=== PATIENT | female | born 1985 | race Caucasian/White ===

== ENCOUNTER → 2021-10-12 11:27 | Outpatient (REF) | payer OTHER, SELFPAY | LOC: ANHLAB 11:27 | PROVIDERS: PCP Hospitalist; Visit Provider Nurse Practitioner | DX: D49.2 Neoplasm of unspecified behavior of bone, soft tissue, and skin (principal) | CPT/HCPCS: 88305; 88342 ==

== ENCOUNTER 2021-12-25 13:00 | Outpatient (NON) | payer OTHER, SELFPAY | END 2021-12-25 13:01 | disposition home or self-care (01) | LOC: ANHLAB 12-26 14:24 | PROVIDERS: PCP Hospitalist; Visit Provider Nurse Practitioner | DX: D22.71 Melanocytic nevi of right lower limb, including hip (principal) | CPT/HCPCS: 88305 ==

== ENCOUNTER 2022-03-23 15:27 | Emergency (ER) | payer OTHER, SELFPAY ==
[2022-03-23 15:40] VITALS: BP 131/82; PULSE 84; RESP 18; TEMP 37.1; O2SAT 100
--- NOTE | 2022-03-23 15:44 | ED.URI ---
HPI - URI/Sore Throat General Chief Complaint: Upper Respiratory Infection Stated Complaint: sinus infection Time Seen by Provider: 03/23/22 15:42 Source: patient Mode of arrival: ambulatory Limitations: no limitations History of Present Illness HPI Narrative: Malka is a 36-year-old female patient presenting to the clinic today with complaints of possible sinus infection. She reports she has had some sinus drainage, cough, dental pain, and nasal congestion. She reports that she has had this ongoing for approximately 2-3 weeks. She denies any fever or chills MD elicited complaint: cough, rhinorrhea, nasal congestion and sinus pain Related Data Home Medications Medication Instructions Recorded Confirmed multivit with 1 tablet PO DAILY 03/23/22 03/23/22 uixhzmti-qrtv-HK-lutein 8 mg iron-400 mcg-300 mcg tablet (Centrum Silver Women) Allergies Allergy/AdvReac Type Severity Reaction Status Date / Time codeine Allergy Unknown Nausea and Verified 03/23/22 15:44 Vomiting Review of Systems Review of Systems: Pertinent positives per HPI. Patient denies any fever, chills, rash, headache, visual changes, dizziness, shortness of breath, chest pain, palpitations, nausea, vomiting, diarrhea, constipation, abdominal pain, or any urinary issues. PMFSH Surgical History Surgical History H/O breast augmentation 2009 Hx of LASIK 2009 Hx of tonsillectomy 1993 Family History Family History Mother Breast cancer Father Lymphoma Social History Social History Smoking status: Unknown if ever smoked Comments At the time of my signature, I reviewed and agree with the nursing past medical, surgical, social, and family history. There is no relevant family history pertinent to the patient complaint. Exam Narrative: General: Well-developed, well nourished, in no apparent distress Head: Normocephalic, atraumatic Eyes: Pupils equally round and reactive to light bilaterally, EOM intact, sclera and conjunctive clear, no discharge, lids normal Ears: TMs intact and clear, ear canals clear, no drainage, grossly hearing normal. Nose: Nares patent, yellow nasal discharge, no inflammation, maxillary sinus tenderness. Mouth: Oral pharynx without lesions or masses, good dentition, MMM. postnasal Neck: Supple, trachea midline, no enlargement of anterior or posterior cervical nodes, no thyroid masses or goiter palpable. Cardio: Regular rate and rhythm, s1 and s2 normal, no murmur appreciated. Resp: Clear to auscultation bilaterally, no rhonchi, rales, wheezing or rubs Course Course Emergency Course: Portions of this record may have been created with voice recognition software. Level of Care: Express Care Visit Vital Signs Vital signs: Vital signs reviewed MDM - URI/Sore Throat MDM Narrative Medical decision making narrative: At the time of visit patient is resting comfortably on the exam table. I suspect patient has acute bacterial rhinosinusitis. Prescription for Augmentin and prednisone was sent to the pharmacy. Supportive measures were discussed with the patient she voiced understanding of discharge instructions and agrees to treatment plan. Differential Diagnosis Differential diagnosis: Likely upper respiratory infection, otitis media, sinusitis, viral infection, bronchitis, influenza, pharyngitis and other ( COVID) Discharge Plan Discharge Clinical Impression: Acute bacterial rhinosinusitis Patient Disposition: Home, Self-Care Condition: Stable Instructions: Antibiotic Form, Rhinosinusitis (ED) Additional Instructions: Take prescription medications only as prescribed- prednisone and Augmentin Increase fluids and stay well hydrated Tylenol/motrin for pain/fever Flonase and OTC antihistamines as direc
== END 2022-03-23 15:50 | disposition home or self-care (01) ==
PROVIDERS: Emergency Provider Nurse Practitioner Family; PCP Hospitalist
DX: J01.90 Acute sinusitis, unspecified (principal)
CPT/HCPCS: 99213; G0463

== ENCOUNTER 2024-07-19 15:47 | Emergency (ER) | payer OTHER, SELFPAY ==
--- OUTSIDE RECORDS SUMMARY | 2024-07-19 15:50 | XMS_ITS | Referral Summary ---
Author Organization [facility] Address [address] [place] [address] Care Team Providers Care Registration Representative Name Role Phone Artem Hoff MD Primary Care Provider [phone] Allergies Active Allergy Reactions Criticality Noted Date Comments Codeine Palpitations,Nausea only,Vomiting Reaction: Altered Heart Rate, , Reaction: Nausea, Vomiting, Medications triamcinolone (KENALOG) 0.1 % creamIndication s:Tinea versicolor Apply to affected area 1-2 times daily as needed. Avoid face and groin. 453.6 g 2 3 Active Estarylla 0.25-35 mg-mcg per tablet Take 1 tablet by mouth daily 4 Active ketoconazole (NIZORAL) 2 % shampooIndicati ons:Tinea versicolor Apply topically 2 (two) times a week Apply to damp skin, lather, leave on 5 minutes, and rinse 120 mL 1 4 Active Active Problems Problem Noted Date Diagnosed Date Tinea versicolor 01/15/2023 Assessment & Plan (10/22/2023 2:26 PM CDT): Ketoconazole shampoo to area and let dry then shower Repeat for 3-5 days Fluconazole 300 mg weekly for 6 weeks Assessment & Plan (01/15/2023 4:20 PM CDT): Triamcinolone cream as needed Also discussed using Selsun blue Immunizations Immunization Administration Dates Next Due Influenza, Quadrivalent, Spl it, Preservative Free, Intramuscular 12/15/2021 Influenza, Split 12/13/2010 Influenza, Trivalent, IM (MDV) 11/26/2008 Influenza, Unspecified 01/15/2023(Deferr ed: Patient Refused),12/09/2020(Deferred: Patient Refused),03/18/2020(Deferred: Patient Refused) Moderna SARS-CoV-2 Monovalen t Vaccination (12+ YRS) 06/04/2020,05/07/2020 PPD TEST 10/14/2020 Rho (D) Immune Globulin, IV or IM 06/17/2018, Social History Tobacco Use Types Packs/Day Years Used Date Smoking Tobacco: Never Smokeless Tobacco: Never Tobacco Cessation:Counseling Given: Not Answered Alcohol Use Standard Drinks/Week Comments Yes 0 (1 standard drink = 0.6 oz pur e alcohol) AUDIT-C Answer Date Recorded Q1: How often do you have a drink containing alc ohol? Monthly or less 12/15/2021 Q2: How many drinks containi ng alcohol do you have on a typical day when you are drinking? 1 or 2 12/15/2021 Q3: How often do you have si x or more drinks on one occasion? 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 file Not on file Last Filed Vital Signs Vital Sign Reading Time Taken Comments Blood Pressure 124/76 04/14/2024 10:08 AM SAND CUTTING MACHINE OPERATOR Pulse 93 04/14/2024 10:08 AM SAND CUTTING MACHINE OPERATOR Temperature 36.3 C (97.4 F) 04/14/2024 10:08 AM SAND CUTTING MACHINE OPERATOR Respiratory Rate 18 04/14/2024 10:08 AM SAND CUTTING MACHINE OPERATOR Oxygen Saturation 98% 04/14/2024 10:08 AM SAND CUTTING MACHINE OPERATOR Inhaled Oxygen Concentration - - Weight 64.4 kg (142 lb) 04/14/2024 10:08 AM SAND CUTTING MACHINE OPERATOR Height 162.6 cm (5' 4 ) 04/14/2024 10:08 AM SAND CUTTING MACHINE OPERATOR Body Mass Index 24.37 04/14/2024 10:08 AM SAND CUTTING MACHINE OPERATOR Plan of Treatment Not on file Procedures Procedure Name Priority Date/Time Associated Diagnosis Comments SCREENING MAMMOGRAM BILATERAL W ACE W IMPLANTS Schedule Routine, Read Routine (OP Routine) 09/10/2023 8:21 AM CDT Family history of breast cancer from Last 3 Months or Most Recently Relevant to Health Maintenance Results * (ABNORMAL) Screening Mammogram Bilateral w Ace w Implants (09/10/2023 8:21 AM CDT) Anatomical Region Laterality Modality Breast Bilateral Mammography 09/10/2023 8:50 AM CDT Impressions 09/10/2023 8:50 AM CDT There are grouped amorphous calcifications in the subareolar right breast. Additional imaging recommended. FINAL ASSESSMENT: BI-RADS Category 0: Incomplete - Need Additional Imaging Evaluation. RECOMMENDATION: Findings in the right breast require additional evaluation. A diagnostic mammogram of the right breast is recommended at this time. Electronically signed by: TIA RODRIGUEZ MD Narrative 09/10/2023 8:50 AM CDT EXAMINATION: BILATERAL SCREENING MAMMOGRAM COMPARISON: There are no prior studies available for comparison TECHNIQUE: Full-field 2D and digital breast tomosynthesis (DBT) images were obtained. CAD was utilized. BREAST PARENCHYMAL COMPOSITION: The breasts are extremely dense, which lowers the sensitivity of mammography. FINDINGS: There are grouped amorphous calcification identified in the subareolar right breast. There is no suspicious abnormality in the left breast on mammogram. There are bilateral subpectoral saline implants which appear uncomplicated. Lainey Brandt MD PhD IMG MAMMO PROCEDURES Final Result from Last 3 Months or Most Recently Relevant to Health Maintenance Insurance [facility] [place] [id number] Care Teams Registration Representative Relationship Specialty Start Date End Date Artem Hoff [place] [address] PCP - General Family Medicine 12/09/20
--- OUTSIDE RECORDS SUMMARY | 2024-07-19 15:50 | XMS_ITS | Clinical Summary ---
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
--- OUTSIDE RECORDS SUMMARY | 2024-07-19 15:50 | XMS_ITS | Clinical Summary ---
Author Organization [facility] Address [address] [place] [address] Phone Care Team Providers Care Surveyor Geophysical Prospecting Name Role Phone Provider, Unknown Primary Care Provider Unavaila ble Allergies Active Allergy Reactions Criticality Noted Date Comments Codeine Vomiting Medium 04/11/2020 Medications No known medications Active Problems No known active problems Social History Tobacco Use Types Packs/Day Years Used Date Smoking Tobacco: Never Smokeless Tobacco: Never Comments Unknown Sex and Gender Information Value Date Recorded Sex Assigned at Not on file Legal Sex Female 8:00 AM 911 TELECOMMUNICATOR Gender Identity Not on file Sexual Orientation Not on file Last Filed Vital Signs Vital Sign Reading Time Taken Comments Blood Pressure - - Pulse 82 04/11/2020 8:27 AM 911 TELECOMMUNICATOR Temperature 36.6 C (97.9 F) 04/11/2020 8:27 AM 911 TELECOMMUNICATOR Respiratory Rate - - Oxygen Saturation 99% 04/11/2020 8:27 AM 911 TELECOMMUNICATOR Inhaled Oxygen Concentration - - Weight - - Height - - Body Mass Index - - Plan of Treatment Health Maintenance Due Date Last Done Comments Hepatitis C Virus (HCV) Screening 1985 TdaP Immunization 1983 Hepatitis B Immunization (1 of 3 - 19+ 3-dose series) 09/11/2002 Influenza Immunization (#1) 2023 SARS-COV-2 Immunization ( - season) 2023 03/13/2021, 06/04/2020, 05/07/2020 Respiratory Syncytial Virus (RSV) Immunization (Adult) (1 - 1-dose 75+ series) 09/11/2058 Meningococcal Immunization (ACWY) Aged Out No longer eligible b ased on patient's age to complete this topic Pneumococcal Immunization Combined Aged Out No longer eligible b ased on patient's age to complete this topic Rotavirus Immunization Aged Out No lo nger eligible based on patient's age to complete this topic Care Teams Surveyor Geophysical Prospecting Relationship Specialty Start Date End Date Provider, Unknown UNKNOWN PCP - General 04/11/20
--- OUTSIDE RECORDS SUMMARY | 2024-07-19 15:50 | XMS_ITS | Clinical Summary ---
Author Organization [facility] Address [address] [place] [address] Care Team Providers Care Foundry Manager Name Role Phone Artem Hoff MD Primary Care Provider [phone] Source Comments [facility],non-owned Affiliates and Associated Physician Practices is amultiple site organization consisting of ambulatory clinics and hospital sitesin [place], [place], [place] and [place]. This disclosure is being madepursuant to the Care Everywhere program and may not contain all information available regarding this patient. 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 Gender Identity Not on file Sexual Orientation Not on file Plan of Treatment Health Maintenance Due Date Last Done Comments LIPID TESTING 1983 MAMMOGRAM 1983 HIV SCREENING 09/11/1998 HEPATITIS C SCREENING 09/07/2001 DTAP/TDAP/TD VACCINES (1 - Tdap) 09/11/2002 HEPATITIS B VACCINE (1 of 3 - 19+ 3-dose series) 09/11/2002 COVID-19 VACCINE ( - 2023-2 5 season) 2023 DEPRESSION SCREENING 03/18/2024 INFLUENZA VACCINE (Season Ended) 2024 ZOSTER VACCINE (1 of 2) 09/11/2033 HIB VACCINE Aged Out No longer eligi ble based on patient's age to complete this topic HPV VACCINE Aged Out No longer eligi ble based on patient's age to complete this topic MENINGOCOCCAL (Group B) VACC INE SHARED DECISION-MAKING Aged Out No longer eligibl e based on patient's age to complete this topic MENINGOCOCCAL GROUPS A/C/Y/W VACCINE Aged Out No longer eligible b ased on patient's age to complete this topic PNEUMOCOCCAL VACCINE Aged Out No long er eligible based on patient's age to complete this topic Insurance [facility] Care Teams Foundry Manager Relationship Specialty Start Date End Date Artem Hoff MD [address] [place] [address] PCP - General 11/24/21
--- OUTSIDE RECORDS SUMMARY | 2024-07-19 15:50 | XMS_ITS | Continuity of Care Document ---
Author Organization [facility] Address [address] [place] [address] [address] [place] [address] Phone Care Team Providers Care Crate Icer Name Role Phone Jamal AREVALO/Joann Paez CHT Unavailable Madina vailable Procedures Procedure Date Progress Note Therapeutic Exercise Neuromuscular Re-Ed Therapeutic Activities Hot or Cold Pack Manual Therapy Therapeutic Activities Hot or Cold Pack Manual Therapy Neuromuscular Re-Ed Neuromuscular Re-Ed Therapeutic Activities Hot or Cold Pack Manual Therapy Therapeutic Activities Therapeutic Exercise Neuromuscular Re-Ed Manual Therapy Hot or Cold Pack Therapeutic Activities Therapeutic Exercise Neuromuscular Re-Ed Hot or Cold Pack Manual Therapy Therapeutic Activities Hot or Cold Pack Manual Therapy Therapeutic Exercise Neuromuscular Re-Ed Hot or Cold Pack Manual Therapy Therapeutic Exercise Neuromuscular Re-Ed Therapeutic Activities Therapeutic Activities Neuromuscular Re-Ed Therapeutic Exercise Manual Therapy Hot or Cold Pack Therapeutic Activities Hot or Cold Pack Manual Therapy Therapeutic Exercise Neuromuscular Re-Ed Therapeutic Exercise OT Evaluation Moderate Complexity Advance Directives Directive Yes / No Effective Date File Name No Information Encounters Encounter Description Practice Location Reason(s) For Visit Diagnoses Date Provider Providers Copied on Encounter [facility] [address] [place] [address], [id number], tel:[phone] [place] No Information Jamal David. [address] [place] [address], [facility] [address], [place], [facility], . tel:[phone] Referring Provider: [address], [place], [address]. tel:[phone] [place] [address] [place] [address], [id number], tel:[phone] [place] No Information Jamal David. [address] [place] [address], [facility] [address], [place], [facility], [place]. tel:[phone] Referring Provider: [address], [place], [address]. tel:[phone] [place] [address] [place] [address], [id number], tel:[phone] [place] No Information Jamal David. [address] [place] [address], [facility] [address], [place], [facility], . tel:[phone] Referring Provider: [address], [place], [address]. tel:[phone] [facility] [address] [place], [place] [address] [address] [place] [address], [id number], tel:[phone] [place] No Information Jamal David. [address] [place] [address], [address], [place], [facility], . tel:[phone] Referring Provider: [address], [place], [address]. tel:[phone] [place] [address] [facility] [address], [place], [place], [id number], [place] tel:[phone] [place] No Information Berry Joann. [address] [place] [address], [address], [place], [facility], . tel:[phone] Referring Provider: [address], [place], [address]. tel:[phone] [place] [address] [place], [place] [address], [place], [place], [id number], [place] tel:[phone] [place] No Information Berry Joann. [address] [place] [address], [address], [place], [place], [facility], [place]. tel:[phone] Referring Provider: [address], [place], [address]. tel:[phone] [place] [address] [place], [place] [address], [place], [place], [id number], [place] tel:[phone] [place] No Information Berry Joann. [address] [place] [address], [address], [place], [facility], [place]. tel:[phone] Referring Provider: [address], [place], [address]. tel:[phone] [place] [address] [place], [place] [address], [place], [place], [id number], [place] tel:[phone] [place] No Information Berry Joann. [address] [place] [address], [address], [place], [place], [facility], [place]. tel:[phone] Referring Provider: [address], [place], [address]. tel:[phone] [place], [place] [address] [place], [place] [address], [place], [place], [id number], [place] tel:[phone] [place] No Information Berry Joann. [address] [facility], [address], [place], [address], [place]. tel:[phone] Referring Provider: [address], [place], [address]. tel:[phone] [facility], [address] [facility] [address], [place], [place], [id number], tel:[phone] [place] No Information Jamal David. [address] [facility], [address], [place], [address], [place]. tel:[phone] Referring Provider: [address], [place], [address]. tel:[phone] Family History Family Member Type Diagnosis Age At Onset No Information Payers Payer name Insurance type Covered constitution party ID Authorrosalee bhakta(s) [facility] CI [id number] Social History Type Description Quantity Date Captured Comments Sex Female Smoking Status No Information Chief Complaint And Reason For Visit No Information Reason For Referral Reason For Referral No Information History Of Present Illness Encounter Date Complaint History Of Prese nt Illness No Information Functional Status Date Functional Assessmen t No Information Instructions Date Instruction Additional Infor mation No Information Assessments Type Assessment Date No Information Patient Care Teams Name Effective Dates (start - stop) Status Members No Information
--- OUTSIDE RECORDS SUMMARY | 2024-07-19 15:50 | XMS_ITS | Clinical Summary ---
Author Organization [facility] Address [address] [place] [address] Care Team Providers Care Snowblower Mechanic Name Role Phone Artem Hoff MD Primary Care Provider [phone] Allergies Active Allergy Reactions Criticality Noted Date [...] (D) Immune Globulin, IV or IM 06/17/2018, Surgical History Surgery Date Site/Laterality Comments TONSILLECTOMY Tonsillectomy TONSILLECTOMY 03/18/1993 - 03/17/1994 Tonsillectomy SECTION 03/18/2016 - 03/17/2017 COMBINED AUGMENTATION MAMMAPLASTY AND ABDOMINOPLASTY REFRACTIVE SURGERY 03/18/2008 - 03/17/2009 SECTION 03/18/2018 - 03/17/2019 BREAST SURGERY 2008 AUGMENTATION MAMMAPLASTY Medical History Medical History Date Comments Hx Other Medical 2007 Breast Augmenta tion Hx Other Medical 2008 Lasik Family History Medical History Relation Name Comments Hypertension Father Reagan pak Hypertension; Lymphoma Father Reagan pak Other Father Reagan pak Stage 3 lymph bakari; Thyroid disease Father Reagan pak Other Maternal Grandfather COPD, E mphazema; Cause of : COPD, Emphazema Other Maternal Grandmother Cancer of T Cells; Breast cancer Mother Amber Pak Fibromyalgia Mother Amber Pak Fibromyalgia; Hypertension Mother Amber Pak Other Mother Amber Pak Alive and well ; Relation Name Status Comments Father Reagan pak Alive Maternal Grandfather (Age 78) Maternal Grandmother Mother Amber Pak Alive Social History Tobacco Use Types Packs/Day Years [...] on file Legal Sex Female 3:18 AM OUT AND OUT CIGAR MAKER HAND Gender Identity Not on file Sexual Orientation Not on file 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 file Not on file Obstetrics History Para Term AB IAB SAB Ectopic Multiple Livin g Live Births 2 2 2 Date Outcome GA Total Labor Labor/2nd/3rd Weight Sex Type Anes PTL Simin A1 A5 Name Clin Term Term Last Filed Vital Signs Vital Sign Reading Time Taken Comments Blood Pressure 124/76 04/14/2024 10:08 AM OUT AND OUT CIGAR MAKER HAND Pulse 93 04/14/2024 10:08 AM OUT AND OUT CIGAR MAKER HAND Temperature 36.3 C (97.4 F) 04/14/2024 10:08 AM OUT AND OUT CIGAR MAKER HAND Respiratory Rate 18 04/14/2024 10:08 AM OUT AND OUT CIGAR MAKER HAND Oxygen Saturation 98% 04/14/2024 10:08 AM OUT AND OUT CIGAR MAKER HAND Inhaled Oxygen Concentration - - Weight 64.4 kg (142 lb) 04/14/2024 10:08 AM OUT AND OUT CIGAR MAKER HAND Height 162.6 cm (5' 4 ) 04/14/2024 10:08 AM OUT AND OUT CIGAR MAKER HAND Body Mass Index 24.37 04/14/2024 10:08 AM OUT AND OUT CIGAR MAKER HAND Plan of Treatment Health Maintenance Due Date Last Done Comments Cervical Cancer Screening 1983 Hepatitis C Screening 1983 DTaP/Tdap/Td Vaccine (1 - Tdap) 09/11/1994 Varicella Vaccines (1 of 2 - 13+ 2-dose series) 09/11/1996 Hepatitis B Screening 09/11/2001 Covid-19 Vaccine ( - season) 2023 06/04/2020, 05/07/2020 Regular Well Visit/Exam 18-64 01/16/2024 01/15/2023, 12/15/2021 Breast Cancer Screening-Mammogram 09/09/2024 09/10/2023 Depression Screening 10/21/2024 10/22/2023, 01/15/2023, 12/15/2021, Additional history exists Influenza Vaccine (Season Ended) 2024 12/15/2021, 12/13/2010, 11/26/2008 HPV Vaccines Aged Out No longer eligi ble based on patient's age to complete this topic Pneumococcal vaccine <65 Aged Out No longer eligible based on patient's age to complete this topic Procedures Procedure Name Priority Date/Time Associated Diagnosis Comments SCREENING MAMMOGRAM BILATERAL W CARLOTA W IMPLANTS Schedule Routine, Read Routine (OP Routine) 09/10/2023 8:21 AM CDT Family history of breast cancer from Last 3 Months or Most Recently Relevant to Health Maintenance Results * (ABNORMAL) Screening Mammogram Bilateral w Carlota w Implants (09/10/2023 8:21 AM CDT) Anatomical [...] recommended at this time. Electronically signed by: MD Norma KENNEDY 09/10/2023 8:50 AM CDT EXAMINATION: BILATERAL SCREENING [...] Most Recently Relevant to Health Maintenance Insurance [facility] [place]ICE [place] [id number] Care Teams Snowblower Mechanic Relationship Specialty Start Date End Date Artem Hoff MD [address] [place] [address] PCP - General Family Medicine 12/09/20
--- OUTSIDE RECORDS SUMMARY | 2024-07-19 15:53 | XMS_ITS | Continuity of Care Document ---
Author Organization [facility] Address [address] [place] [address] [address] [place] [address] Phone Care Team Providers Care Taste Tester Name Role Phone Jamal AREVALO/Joann Paez CHT Unavailable Madina vailable Procedures Procedure Date Progress Note Therapeutic Activities Neuromuscular Re-Ed Therapeutic Exercise Manual Therapy Hot or Cold Pack Therapeutic Activities Neuromuscular Re-Ed Manual Therapy Hot or Cold Pack Therapeutic Activities Neuromuscular Re-Ed Manual Therapy Hot or Cold Pack Therapeutic Activities Neuromuscular Re-Ed Therapeutic Exercise Manual Therapy Hot or Cold Pack Therapeutic Activities Neuromuscular Re-Ed Therapeutic Exercise Manual Therapy Hot or Cold Pack Therapeutic Activities Neuromuscular Re-Ed Therapeutic Exercise Manual Therapy Hot or Cold Pack Therapeutic Activities Neuromuscular Re-Ed Therapeutic Exercise Manual Therapy Hot or Cold Pack Therapeutic Activities Neuromuscular Re-Ed Therapeutic Exercise Manual Therapy Hot or Cold Pack Therapeutic Activities Neuromuscular Re-Ed Therapeutic Exercise Manual Therapy Hot or Cold Pack OT Evaluation Moderate Complexity Therapeutic Exercise Advance Directives Directive Yes / No Effective Date File Name No Information Encounters Encounter Description Practice Location Reason(s) For Visit Diagnoses Date Provider Providers Copied on Encounter [facility] [address] [place] [address], [id number], tel:[phone] [place] No Information Jamal David. [address] [place] [address], [facility] [address], [place], [facility], . tel:[phone] Referring Provider: [address], [place], [address]. tel:[phone] [place] [address] [place] [address], [id number], tel:[phone] [place] No Information Jamal David. [address] [place] [address], [facility] [address], [place], [facility], . tel:[phone] Referring Provider: [address], [place], [address]. tel:[phone] [place] [address] [place] [address], [id number], tel:[phone] [place] No Information Jamal David. [address] [place] [address], [facility] [address], [place], [facility], . tel:[phone] Referring Provider: [address], [place], [address]. tel:[phone] [facility] [address] [place], [place] [address] [address] [place] [address], [id number], tel:[phone] Vega No Information Jamal David. [address] [place] [address], [address], [place], [facility], . tel:[phone] Referring Provider: [address], [place], [address]. tel:[phone] [place] [address] [facility] [address], [place], [place], [id number], [place] tel:[phone] V[place] No Information Berry Joann. [address] [place] [address], [address], [place], [facility], . tel:[phone] Referring Provider: [address], [place], [address]. tel:[phone] [place] [address] [place], [place] [address], [place], [place], [id number], [place] tel:[phone] [place] No Information Berry Joann. [address] [place] [address], [address], [place], [place], [facility], [place]. tel:[phone] Referring Provider: [address], [place], [address]. tel:[phone] [place] [address] [place], [place] [address], [place], [place], [id number], [place] tel:[phone] [place] No Information Berry Joann. [address] [place] [address], [address], [place], [facility], [place]. tel:[phone] Referring Provider: [address], [place], [address]. tel:[phone] [place] [address] [place], [place] [address], [place], [place], [id number], [place] tel:[phone] [place] No Information Berry Joann. [address] [place] [address], [address], [place], [place], [facility], [place]. tel:[phone] Referring Provider: [address], [place], [address]. tel:[phone] [place] [address] [place], [place] [address], [place], [place], [id number], [place] tel:[phone] [place] No Information Berry Joann. [address] [facility], [address], [place], [address], [place]. tel:[phone] Referring Provider: [address], [place], [address]. tel:[phone] [facility] [place], [address] [facility] [address], [place], [place], [id number], tel:[phone] [place] No Information Jamal David. [address] [facility], [address], [place], [address], [place]. tel:[phone] Referring Provider: [address], [place], [address]. tel:[phone] Family History Family Member Type Diagnosis Age At Onset No Information Payers Payer name Insurance type Covered alliance party ID Authorrosalee bhakta(s) [facility] CI [id number] Social History Type Description Quantity Date Captured [...]
[2024-07-19 15:58] VITALS: BP 150/91; PULSE 86; RESP 18; TEMP 36.9; O2SAT 100
--- NOTE | 2024-07-19 16:16 | ED.URI ---
HPI - URI/Sore Throat General Chief Complaint: Upper Respiratory Infection Stated Complaint: sinus inf Time Seen by Provider: 07/19/24 16:10 Source: patient and RN notes reviewed Mode of arrival: ambulatory Limitations: no limitations History of Present Illness HPI Narrative: 38-year-old female presents Express Care complaining of upper respiratory symptoms for 3 weeks. Patient said he has been having sinus congestion and drainage for the last 3 weeks. Last today she is not she has had worsening sinus pressure and pain to the right side of her face. Patient denies any cough, fevers, sore throat, ear pain, chest pain, or shortness of breath. Patient denies any significant past medical history. Related Data Home Medications ?Medication ?Instructions ?Recorded ?Confirmed ?Last Taken ?Type norgestimate 0.25 mg-ethinyl tablet 07/19/24 Unknown History estradiol 0.035 mg tablet (Sprintec (28)) Allergies Allergy/AdvReac Type Severity Reaction Status Date / Time codeine Allergy Unknown Nausea and Verified 07/19/24 16:03 Vomiting Review of Systems Review of Systems: CONSTITUTIONAL: Denies fever, chills, body aches, or sweats. EYES: Denies visual changes, redness, or discharge. ENT: Denies rhinorrhea, sore throat, or otalgia. Positive for nasal congestion and sinus pressure. CARDIOVASCULAR: Denies chest pain, palpitations, or edema. RESPIRATORY: Denies cough or dyspnea. GASTROINTESTINAL: Denies abdominal pain, nausea, vomiting, or diarrhea. GENITOURINARY: Denies dysuria or hematuria. SKIN: Denies rash or itching. MUSCULOSKELETAL: Denies back pain, joint pain, or myalgia. NEUROLOGIC: Denies headache, numbness, or weakness. PSYCHIATRIC: Denies anxiety or depression. All other systems reviewed are negative, except as documented in HPI. [facility] Surgical History Surgical History Hx of tonsillectomy 1992 Hx of LASIK 2009 H/O breast augmentation 2008 Family History Family History Mother Breast cancer Father Lymphoma Social History Social History Smoking status: Unknown if ever smoked Comments At the time of my signature, I reviewed and agree with the nursing past medical, surgical, social, and family history. There is no relevant family history pertinent to the patient complaint. Exam Narrative: GENERAL: This is a well-nourished, well-developed adult, in no apparent distress. They are non ill-appearing, nontoxic appearing. HEAD: normocephalic, atraumatic. EYES: Sclera clear/white. Conjunctiva normal. Vision is grossly intact. Extraocular movements intact EARS: External ears normal, auditory canals clear and without drainage, TMs normal without perforation. Hearing grossly intact. NOSE: External nose normal with no obvious nasal discharge, nasal turbinates erythematous bilaterally without exudate, no rhinorrhea. Sinus tenderness to palpation to the right maxillary sinuses. THROAT: Mucous membranes moist, posterior pharynx clear, without erythema or swelling. Uvula midline. Postnasal drip present. NECK: Neck supple, non-tender without lymphadenopathy, masses or thyromegaly. CARDIOVASCULAR: Regular rate and rhythm without murmurs, gallops, or rubs. RESPIRATORY: Clear to auscultation. Breath sounds equal bilaterally. No wheezes, rales, or rhonchi. SKIN: warm, Dry, intact with no suspicious lesions or rash, good texture and turgor. NEURO: awake, alert, and oriented to person, place and time. There were no obvious focal neurologic abnormalities. EXTREMITIES: No joint tenderness, effusion, or edema noted. Course Course Emergency Course: Portions of this record may have been created with voice recognition software Level of Care: Express Care Visit Vital Signs Vital signs: Vital Signs Temperature 98.4 F 07/19/24 15:58 Pulse Rate 86 07/19/24 15:58 Respiratory Rate 18 07/19/24 15:58 Blood Pressure 150/91 H 07/19/24 15:58 Pulse Oximetry 100 07/19/24 15:58 Oxygen Delivery Room Air 07/19/24 15:58 Temperature 98.4 F 07/19/24 15:58 Pulse Rate 86 07/19/24 15:58 Respiratory Rate 18 07/19/24 15:58 Blood Pressure 150/91 H 07/19/24 15:58 Pulse Oximetry 100 07/19/24 15:58 Oxygen Delivery Room Air 07/19/24 15:58 Reviewed MDM - URI/Sore Throat MDM Narrative Medical decision making narrative: Given patient's length of symptoms it is likely that she has developed a bacterial sinus infection. Will treat empirically with Augmentin. Discussed physical exam findings. Advised supportive measures and signs/symptoms to go to the ER. Pt is appropriate for outpt treatment and f/u. Differential Diagnosis Differential diagnosis: Likely upper respiratory infection, sinusitis and viral infection Critical Care Time Critical Care Time Critical Care Time: No Discharge Plan Discharge Clinical Impression: Sinusitis Qualifiers: Sinusitis location: unspecified location Chronicity: acute Recurrence: non-recurrent Qualified Code(s): J01.90 - Acute sinusitis, unspecified Patient Disposition: Home Condition: Stable Instructions: Antibiotic Form, Sinusitis (ED) Additional Instructions: Take the antibiotics as directed and complete the course even if you start to feel better. You may use a Neti pot saline rinse 3 times a day with lukewarm distilled water. Continue to take Tylenol or Motrin for pain. Use a humidifier or vaporizer at night. Drink plenty of water. 8-10 glasses per day. Use flonase 2 times per day for 5 days then as needed Take mucinex 2 times per day and be sure to take with 8oz of water. Follow up with Primary provider if not getting better. If your symptoms worsen or you develop any breathing problems, fevers or any other concerns please go to the ER immediately. Patient Language: Amharic Prescriptions: New amoxicillin-pot clavulanate 875-125 mg tablet 1 tablet PO Q12H 7 Days Qty: 14 0RF No Action norgestimate-ethinyl estradiol [Sprintec (28)] 0.25-0.035 mg tablet Follow-up/Referrals: Kavya,MD Artem [Primary Care Provider] - Time of Disposition: 16:14
== END 2024-07-19 16:18 | disposition home or self-care (01) ==
PROVIDERS: PCP Hospitalist
DX: J01.90 Acute sinusitis, unspecified (principal)
CPT/HCPCS: 99213; G0463

== ENCOUNTER 2024-11-23 08:03 | Outpatient (CLI) | payer OTHER, SELFPAY ==
--- NOTE | ~2024-11-23 | US_ITS ---
EXAMINATION: US transvaginal DATE: 11/23/2024 09:05 INDICATION: Abnormal uterine bleeding TECHNIQUE: Multiple transabdominal and endovaginal sonographic images of the pelvis were obtained. COMPARISON: None. FINDINGS: The uterus measures 8.9 x 4.3 x 5.1 cm. The endometrial complex measures 8 mm in thickness. There is a small amount of free hypoechoic likely fluid in the endometrial canal at the lower uterine segment. Likely section scar anterior wall of the lower uterine segment. 9 mm hypoechoic likely uterine fibroid at the uterine fundus. The right ovary measures 1.9 x 1.5 x 1.0 cm. The left ovary measures 2.8 x 2.4 x 1.8 cm. Mass or flow identified in both ovaries on color Doppler. There is no free fluid in the pelvis. IMPRESSION: 1. Small uterine fibroid. 2. Likely section scar along the anterior wall of the lower uterine segment with small amount of fluid within the endometrial canal at the lower uterine segment. Reviewed, dictated and finalized at location A. IMPRESSION: 1. Small uterine fibroid. 2. Likely section scar along the anterior wall of the lower uterine se gment with small amount of fluid within the endometrial canal at the lower uter ine segment.
== END 2024-11-23 08:04 | disposition home or self-care (01) ==
LOC: MICIMG 08:04
PROVIDERS: PCP Hospitalist; Visit Provider Obstetrics & Gynecology Gynecology
DX: N93.8 Other specified abnormal uterine and vaginal bleeding (principal); D25.9 Leiomyoma of uterus, unspecified
CPT/HCPCS: 76830

== ENCOUNTER 2024-12-21 01:46 | Day surgery (SDC) | payer OTHER, SELFPAY ==
[2024-12-09 14:35] VITALS: BMI 24.0
--- NOTE | 2024-12-09 14:42 | PC.NURSE ---
[facility] has started construction of its new state of the art ER which will open Spring 2026. With this, we anticipate parking may be a challenge for some our surgical patients and families. Parking spaces are limited but are available for all Surgical, obstetrics, and ER patients sharing this lot. If you arrive and find you are having a hard time finding a parking space, please note that we understand the challenges, please drive around the hospital and park near Hospital Entrance 1. When you enter this entrance, you can ask a volunteer to direct or take you back to the surgical waiting area to check in. We appreciate everyone?s understanding of these expected challenges while we build for your future. Report to the Outpatient Waiting Room, entrance under the green pavilion located off [address], at time _0700_ on date _[id number]_. Planned Procedure Time: _0900_.? Time changes happen often and if your time is changed the preop area will call you the afternoon before. - You and your visitor will be asked to self-screen and do not enter if you have any COVID symptoms. Please call surgeon if you need to reschedule. - A mask is optional within the hospital at this time. Patients may have clear liquids (water, carbonated beverages, clear teas, apple juice) until 3 hours prior to surgery with a maximum of 20 ounces. - No food from midnight until time of surgery and no smoking, or chewing tobacco (or any form of nicotine). No chewing gum, candy or mints. Take only the following medications with a SIP of water on the morning of surgery: __Sprintec____ DO NOT STOP ANY OF YOUR OTHER PRESCRIPTION MEDICATIONS PRIOR TO SURGERY EXCEPT THE FOLLOWING Hold all vitamins and supplements for 3 days per anesthesiologist. Medications to discontinue per physician Date to take last dose Please no make-up, nail faroese, hairspray, perfume, deodorant, or body powder the day of surgery.? No jewelry (including any body piercings) or valuables the day of surgery, leave them at home.? Please take a shower or bath the night before, or the morning of, surgery with an antibacterial soap.? Wear comfortable, loose fitting clothing.? - Jewelry must be removed prior to entering the operating room.? Rings and piercings that are not removed may be cut off. - The hospital will not accept responsibility for valuables.? - Please leave all valuables, including medications, at home the day of surgery. If you are going home after surgery, a licensed personal driver must drive you home.? - NO public transportation without another adult if you receive anesthesia. - We recommend that an adult stay with you for 24 hours following discharge. - We also recommend that you do not drive, make important decision, drink alcoholic beverages, or take any drugs that were not prescribed by your health care provider for at least 24 hours after your discharge time. Follow any additional instructions given to you from your surgeon. Telephone instructions given to __Malka___and asked if any additional questions and then verbalized understanding. Patient advised to call surgeon office or pre surgery nurse liaison [phone] if any additional questions.
--- OUTSIDE RECORDS SUMMARY | 2024-12-21 01:52 | XMS_ITS | Clinical Summary ---
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 OPTIONS PPO [id number]
--- OUTSIDE RECORDS SUMMARY | 2024-12-21 01:52 | XMS_ITS | Clinical Summary ---
Author Organization [facility] Address [address] [place] [address] Care Team Providers Care Shade Cloth Finisher Name Role Phone Artem Hoff MD Primary Care Provider [phone] Source Comments [facility],non-owned Affiliates and Associated Physician Practices is amultiple site organization consisting of ambulatory clinics and hospital sitesin [place], [place], [place] and [place]. This disclosure is being madepursuant to the Care Everywhere program and may not contain all information available regarding this patient. 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 Gender Identity Not on file Sexual Orientation Not on file Plan of Treatment Health Maintenance Due Date Last Done Comments LIPID TESTING 1983 MAMMOGRAM 1983 HIV SCREENING 09/11/1998 HEPATITIS C SCREENING 09/07/2001 DTAP/TDAP/TD VACCINES (1 - Tdap) 09/11/2002 HEPATITIS B VACCINE (1 of 3 - 19+ 3-dose series) 09/11/2002 HPV VACCINE (1 - 3-dose SCDM series) 09/11/2010 DEPRESSION SCREENING 03/18/2024 COVID-19 VACCINE (1 - 2023-2 5 season) 2024 INFLUENZA VACCINE (#1) 2024 ZOSTER VACCINE (1 of 2) 09/11/2033 [...] patient's age to complete this topic [place] [address] [facility] Address: [address] [address] Care Teams Shade Cloth Finisher Relationship Specialty Start Date End Date Artem Hoff MD [address] [place] [address] PCP - General 11/24/21
--- OUTSIDE RECORDS SUMMARY | 2024-12-21 01:52 | XMS_ITS | Encounter Summary ---
Author Organization [facility] Address [address] [place] [address] Care Team Providers Care Music Pastor Name Role Phone Artem Hoff MD Primary Care Provider [phone] Encounter Details Date Type Department Care Team (Late st Contact Info) Description 11/23/2024 Orders Only [facility] Management [address] [place] [id number] Scanning, Provider Social History Tobacco Use Types Packs/Day Years Used Date Smoking Tobacco: Never Smokeless Tobacco: Never Alcohol Use Standard Drinks/Week Comments Yes 0 [...] on file Legal Sex Female 3:18 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 Gender Identity Not on file Sexual Orientation Not on file 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 file Not on file documented as of this encounter Plan of Treatment Not on file documented as of this encounter Procedures Procedure Name Priority Date/Time Associated Diagnosis Comments SCAN - RADIOLOGY/IMAGING 11/23/2024 documented in this encounter Results * SCAN - RADIOLOGY/IMAGING (11/23/2024) Anatomical Region Laterality Modality Other us Provider Scanning Final Result documented in this encounter Visit Diagnoses Not on filedocumented in this encounter Care Teams Music Pastor Relationship Specialty Start Date End [place] [address] PCP - General Family Medicine 12/09/20 documented as of this encounter
--- OUTSIDE RECORDS SUMMARY | 2024-12-21 01:52 | XMS_ITS | Clinical Summary ---
Author Organization [facility] Address [address] [place] [address] Care Team Providers Care Fish And Wildlife Technician Name Role Phone Artem Hoff MD Primary Care Provider [phone] Allergies Active Allergy Reactions Criticality Noted Date [...] and rinse 120 mL 1 4 Active Additional Information Patient not taking.Reported on 09/08/2024 Active Problems Problem Noted Date Diagnosed Date Tinea versicolor 01/15/2023 Assessment & Plan (10/22/2023 2:26 PM CDT): Ketoconazole shampoo to area and let dry then shower Repeat for 3-5 days Fluconazole 300 mg weekly for 6 weeks Assessment & Plan (01/15/2023 4:20 PM CDT): Triamcinolone cream as needed Also discussed using Jina banks Encounters Date Type Department Care Team Description 12/14/2024 2:55 PM CDT Lab [facility] [address] [place] [address] 11/23/2024 Orders Only [facility] [address] [place] [address] Scanning, Provider 09/25/2024 Orders Only [facility] [address] [place] [address] Treva Taylor, DARLIN Abnormal finding on breast imaging (Primary Dx); At high risk for breast cancer; Presence of silicone breast implant 09/24/2024 Orders Only [facility] [address] [facility] [address] [place] [address] Treva Taylor, DARLIN Abnormal mammogram (Primary Dx); Presence of silicone breast implant; At high risk for breast cancer; Malignant neoplasm of upper-outer quadrant of left breast in female, estrogen receptor positive (HCC); History of partial mastectomy of left breast; Encounter for follow-up surveillance of breast cancer from Last 3 Months Immunizations Immunization Administration Dates Next Due Influenza, [...] 03/17/2009 SECTION 03/18/2018 - 03/17/2019 BREAST SURGERY 2009 AUGMENTATION MAMMAPLASTY 03/18/2008 - 03/17/2009 Bilater al Medical History Medical History Date Comments Hx Other Medical 2007 Breast Augmenta tion Hx Other Medical 2009 Lasik Family History Medical History Relation Name [...] Mother Amber Pak Alive and well ; Ovarian cancer Neg Hx Thyroid cancer Neg Hx Relation Name Status Comments Father Reagan pak [...] on file 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 Gender Identity Not on file Sexual Orientation [...] Sign Reading Time Taken Comments Blood Pressure 129/87 09/08/2024 12:13 PM CDT Pulse 82 09/08/2024 12:13 PM CDT Temperature 36.7 C (98 F) 09/08/2024 12:13 PM CDT Respiratory Rate 18 09/08/2024 12:13 PM CDT Oxygen Saturation 99% 09/08/2024 12:13 PM CDT Inhaled Oxygen Concentration - - Weight 62.6 kg (138 lb) 09/14/2024 8:55 AM CDT Height 162.6 cm (5' 4) 09/14/2024 8:55 AM CDT Body Mass Index 23.69 09/14/2024 8:55 AM CDT Plan of Treatment Health Maintenance Due Date Last Done Comments Cervical Cancer Screening 1985 Hepatitis C Screening 1985 DTaP/Tdap/Td Vaccine (1 - Tdap) 09/11/1994 Varicella Vaccines (1 of 2 - 13+ 2-dose series) 09/11/1996 Hepatitis B Screening 09/11/2001 HPV Vaccines (1 - 3-dose SCDM series) 09/11/2010 Regular Well Visit/Exam 18-64 01/16/2024 01/15/2023, 12/15/2021 Depression Screening 10/21/2024 10/22/2023, 01/15/2023, 12/15/2021, Additional history exists Covid-19 Vaccine ( season) 2024 06/04/2020, 05/07/2020 Influenza Vaccine (#1) 2024 , 12/13/2010, 11/26/2008 Breast Cancer Screening-Mammogram 09/14/2025 09/14/2024, 09/10/2023 Pneumococcal vaccine <65 Aged Out No longer eligible based on patient's age to complete this topic Procedures Procedure Name Priority Date/Time Associated Diagnosis Comments CBC WITHOUT DIFFERENTIAL Routine 12/14/2024 2:56 PM CDT SCAN - RADIOLOGY/IMAGING 11/23/2024 DIAGNOSTIC MAMMOGRAM BILATERAL W ACE W IMPLANTS Schedule Routine, Read Routine (OP Routine) 09/14/2024 9:12 AM CDT At high risk for breast cancer Family history of breast cancer Abnormal mammogram from Last 3 Months or Most Recently Relevant to Health Maintenance Results * (ABNORMAL) CBC without differential (12/14/2024 2:56 PM CDT) WBC 7.45 3.80 - 9.90 K/cumm Comment:Testing performed by : [facility], [address] [place] [address], [id number] Hgb 11.0(L) 11.9 - 15.5 g/dL [facility] ([place]) Comment:Testing performed by : [facility], [address] [place] [address], [id number] Hct 34.1(L) 35.6 - 45.5 % [facility] ([place]) Comment:Testing performed by : [facility], [address] [place] [address], [id number] Plt 240 150 - 400 K/cumm [facility] ([place]) Comment:Testing performed by : [address], [address] MPV 10.1 9.1 - 12.3 fL [facility] ([place]) Comment:Testing performed by : [address], [address] RBC 3.51(L) 3.90 - 5.20 M/cumm [facility] ([place]) Comment:Testing performed by : [address], [address] MCV 97.2(H) 81.3 - 96.4 fL [facility] ([place]) Comment:Testing performed by : [address], [address] MCH 31.3 27.1 - 33.3 pg [facility] ([place]) Comment:Testing performed by : [address], [address] MCHC 32.3 32.3 - 35.7 g/dL [facility] ([place]) Comment:Testing performed by : [address], [address] RDW CV 12.3 11.1 - 14.9 % [facility] ([place]) Comment:Testing performed by : [address], [address] RDW SD 44.1 35.7 - 48.1 fL [facility] ([place]) Comment:Testing performed by : [address], [address] NRBC abs 0.00 0.00 - 0.01 K/cumm [facility] ([place]) Comment:Testing performed by : [facility], [address] [place] [address], [place]., [address] Blood 12/14/2024 2:56 PM CDT 12/14/2024 2:56 PM CDT us Ni Parker MD LAB BLOOD ORDERABLES Fin al Result [facility] ([place]) [address] [facility] Department [place] [address] * SCAN - RADIOLOGY/IMAGING (11/23/2024) Anatomical Region Laterality Modality Other us Provider Scanning Final Result * Diagnostic Mammogram Bilateral W Ace W Implants (09/14/2024 9:12 AM CDT) Anatomical Region Laterality Modality Breast Bilateral Mammography 09/22/2024 11:0 1 AM CDT Impressions 09/22/2024 11:01 AM CDT There are stable probably benign calcifications in the right breast Results were discussed with the patient. OVERALL FINAL ASSESSMENT: BI-RADS Category 3: Probably Benign. RECOMMENDATION: A bilateral diagnostic mammography is recommended in 12 months. Electronically signed by: Sherri Magdaleno M.D. Narrative 09/22/2024 11:01 AM CDT EXAMINATION: BILATERAL DIGITAL DIAGNOSTIC MAMMOGRAM INCLUDING CAD AND BILATERAL DIGITAL BREAST TOMOSYNTHESIS HISTORY: Follow-up probably benign calcifications in the right breast. COMPARISON: 03/19/2024, 09/24/2023, 09/10/2023 TECHNIQUE: Full field digital mammographic views of BOTH breast were performed, including computer aided detection (CAD) and BILATERAL digital breast tomosynthesis (DBT). BREAST PARENCHYMAL COMPOSITION: The breasts are extremely dense, which lowers the sensitivity of mammography. MAMMOGRAM FINDINGS: Bilateral subpectoral saline implants are intact. The calcifications seen in the subareolar right breast appears stable. These will continue to be classified as probably benign. No other suspicious masses, calcifications or other significant findings are seen in either breast. There is no significant change. Lainey Brandt MD PhD IMG MAMMO PROCEDURES Final Result from Last 3 Months or Most Recently Relevant to Health Maintenance Insurance [facility] CHO[place] [id number] [place] [id number] Care Teams Fish And Wildlife Technician Relationship Specialty Start Date End Date Artem Hoff MD [address] [place] [address] PCP - General Family Medicine 12/09/20
--- OUTSIDE RECORDS SUMMARY | 2024-12-21 01:52 | XMS_ITS | Clinical Summary ---
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 Gender Identity Not on file Sexual Orientation Not on file Last Filed Vital Signs Vital Sign Reading Time Taken Comments Blood Pressure - - Pulse 82 04/11/2020 8:27 AM TERMINAL WORKER Temperature 36.6 C (97.9 F) 04/11/2020 8:27 AM TERMINAL WORKER Respiratory Rate - - Oxygen Saturation 99% 04/11/2020 8:27 AM TERMINAL WORKER Inhaled Oxygen Concentration - - Weight - - Height - - Body Mass Index - - Plan of Treatment Health Maintenance Due Date Last Done Comments Hepatitis C Virus (HCV) Screening 1985 TdaP Immunization 1985 Hepatitis B Immunization (1 of 3 - 19+ 3-dose series) 09/11/2002 Pap Smear 09/11/2004 Human Papillomavirus (HPV) Immunization (1 - 3-dose SCDM series) 09/11/2010 Cervical Cancer Screening (CCS) 09/11/2013 HPV/Cotest 09/11/2013 Influenza Immunization (#1) 2024 SARS-COV-2 Immunization ( season) 2024 03/13/2021, 06/04/2020, 05/07/2020 Respiratory Syncytial Virus (RSV) [...] age to complete this topic Care Teams Director Of Property Management Relationship Specialty Start Date End Date Provider, Unknown UNKNOWN PCP - General 04/11/20
[2024-12-21 07:30] VITALS: BP 141/76; PULSE 83; RESP 14; TEMP 36.6; O2SAT 100
--- NOTE | 2024-12-21 07:33 | WPDHPUPDATE1 ---
History and Physical Update Update Date/Time: 12/21/24 07:33 History and Physical has been reviewed, including an updated exam of the patient. There are NO changes in the patient's condition. Risks, benefits, and alternatives have been discussed and questions answered. Patient agrees to proceed with procedure.
--- NOTE | 2024-12-21 07:33 | PM.HPGS ---
History of Present Illness History of Present Illness Consent: Risks, benefits, and alternatives have been discussed and questions answered. Patient agrees to proceed with procedure. Chief complaint: abnormal uterine bleeding Narrative: Malka Hayden is a 39 year old female with prolonged vaginal bleeding for 50 days. Bleeding has been fluctuating between light and normal flow. The patient was slightly anemic with a hemoglobin of 11. Pelvic ultrasound shows a small fibroid. It was recommended to undergo D&C hysteroscopy. Risks of infection, bleeding, perforation, and possible pathology are reviewed. Patient voices understanding and agrees to proceed. Review of Systems Review of Systems: not repeated day of surgery; patient states no changes in status [facility] Surgical History Surgical History (Updated 12/21/24 @ 07:35 by Ni Parker MD) History of bilateral tubal ligation With 2nd History of X2 Hx of tonsillectomy 1992 Hx of LASIK 2009 H/O breast augmentation 2008 Family History Family History Mother Breast cancer Father Lymphoma Social History Social History Smoking status: Never smoker Living arrangements: with family Spiritual care concerns: No Meds Home Medications and Allergies Home Medications ?Medication ?Instructions ?Recorded ?Confirmed ?Type norgestimate 0.25 mg-ethinyl 1 tablet PO DAILY 07/19/24 12/09/24 History estradiol 0.035 mg tablet (Sprintec (28)) multivitamin-ferrous 1 tablet PO DAILY 12/09/24 12/09/24 History fumarate-folic acid 18 mg-400 mcg tablet (Centrum Women) Allergies Allergy/AdvReac Type Severity Reaction Status Date / Time codeine Allergy Unknown Nausea and Verified 12/09/24 14:33 Vomiting Exam Const: General: healthy appearing and alert Orientation/consciousness: patient oriented x3 Resp: Effort & Inspection: normal respiratory effort : External Female Exam: normal external appearance Speculum Exam - Vagina: normal appearance of the vagina and normal vaginal discharge Speculum Exam - Cervix: normal appearance of the cervix Bimanual exam- vagina & uterus: uterine size normal and consistency normal Bimanual Exam- Adnexa, other: normal adnexae and No adnexal tenderness Neuro: General: patient oriented x3 Assessment and Plan Assessment and plan (1) Menorrhagia: Code(s): N92.0 - Excessive and frequent menstruation with regular cycle Status: Acute Assessment and Plan: Plan to proceed with D&C hysteroscopy
[2024-12-21] MEDS: ACETAMINOPHEN 500 MG TABLET 1000 MG PO (07:57)
--- NOTE | 2024-12-21 08:19 | WPDANESEPPF ---
Anes - Initial Pre Proc Eval Procedure: Operation Date: 12/21/24 09:00 Proposed Procedures p Hysteroscopy, Dilation and Curettage - Ni Parker MD Date/Time: 12/21/24 08:19 Surgeon: Ni Parker MD Pre Op Diagnosis: abnormal uterine bleeding Patient Data Age: 39 Gender: F Height: 1.63 m Weight: 64.9 kg Last Vital Signs Temp 36.6 C 12/21/24 07:30 Pulse 83 12/21/24 07:30 Resp 14 12/21/24 07:30 BP 141/76 H 12/21/24 07:30 Pulse Ox 100 12/21/24 07:30 O2 Del Method Room Air 12/21/24 07:30 Allergies Allergy/AdvReac Type Severity Reaction Status Date / Time codeine AdvReac Unknown Nausea and Verified 12/21/24 07:46 Vomiting Home Medications ?Medication ?Instructions ?Recorded ?Confirmed ?Type norgestimate 0.25 mg-ethinyl 1 tablet PO DAILY 07/19/24 12/09/24 History estradiol 0.035 mg tablet (Sprintec (28)) multivitamin-ferrous 1 tablet PO DAILY 12/09/24 12/09/24 History fumarate-folic acid 18 mg-400 mcg tablet (Centrum Women) Patient hx anesthesia problems: post op nausea/vomiting Family hx anesthesia problems: none Results Review: All pre-operative results and documents have been reviewed as part of the pre-operative evaluation. [facility] Surgical History Surgical History (Updated 12/21/24 @ 07:35 by Ni Parker MD) History of bilateral tubal ligation With 2nd History of X2 Hx of tonsillectomy 1993 Hx of LASIK 2009 H/O breast augmentation 2008 Family History Family History Mother Breast cancer Father Lymphoma Social History Social History Smoking status: Never smoker Living arrangements: with family Spiritual care concerns: No Anes - Eval Final PreProcedure Day of Procedure 12/21/24 08:19 Patient weight: normal Heart: regular rate and rhythm Lungs: clear to auscultation and normal air movement Airway: Mallampati scale class II Neurological: alert and oriented Last oral intake: >/= 8 hours ASA classification: I Emergent: no Anesthetic plan: proceed Anesthesia type and monitoring: general GIVS and standard monitoring Results Review: All pre-operative results and documents have been reviewed as part of the pre-operative evaluation. Informed Consent: The patient's anesthetic plan and its attendant risks and benefits were discussed with the patient/family/POA. Questions were solicited and answers provided to the satisfaction of the patient/family/POA.
[2024-12-21 08:20] LABS: BEDSIDEPREGUCG Negative (Negative)
[2024-12-21] MEDS: KETOROLAC 30 MG/ML VIAL (*BKC) IV PUSH (08:43)
--- NOTE | 2024-12-21 08:51 | S_PTH ---
PATIENT: Malka Hayden LOC: [facility] U#:[id number] AGE/SX: 39/F ROOM: RE12/21/[address]: Ni Parker MD : 1985 BED: DIS: 12/21/2024 SPEC #: [id number] RECD: 12/21/24 10:39 STATUS: DUNIA REQ #: [id number] MARTI: 12/21/24 08:[address]: Ni Parker DEPT: [facility] Surgical RECD BY: Hetal Faulkner ENTERED: 12/21/24 10:39 SP TYPE: Surgical OTHR DR: Artem HoffMD Tissues: A - Endometrial Curettings Procedures: Hematoxylin and Eosin Stain Gross and Microscopic Level 4
[2024-12-21 08:58] VITALS: BP 138/75; PULSE 60; RESP 14; O2SAT 100
[2024-12-21] MEDS: LACTATED RINGERS 1,000 ML 30 ML IV CONT (08:58)
[2024-12-21 09:25] VITALS: BP 130/77; PULSE 67
[2024-12-21 09:40] VITALS: BP 135/85; PULSE 64
--- NOTE | 2024-12-22 07:33 | P.OP_ITS ---
Procedure Note - Detailed Date of Procedure 12/21/24 Pre-op Diagnosis Menorrhagia Post-op Diagnosis Same Procedure Performed D&C hysteroscopy Surgeon Ni Parker MD Anesthesia MAC Findings The endometrium appears grossly normal and secretory with no discrete lesions Description of Procedure The patient was taken to the operating room and placed under anesthesia in the dorsal lithotomy position. She was prepped and draped in the usual sterile fashion. [place] speculum was placed in the vagina and the cervix grasped on the anterior lip with a tenaculum. The uterus is sounded. The hysteroscope was placed and with no abnormalities noted it is removed. The endometrium was sharply curetted until a good uterine cry was noted in all areas. All instruments are removed. Sponge, needle, and instrument counts are correct per the OR staff. The patient was taken to recovery in stable condition. Estimated Blood Loss 5 Drains No Packing No Pathology Yes (Endometrial curetting) Complications No immediate complications Condition Stable Disposition PACU
== END 2024-12-21 09:45 | disposition home or self-care (01) ==
PROVIDERS: PCP Hospitalist; Visit Provider Obstetrics & Gynecology Gynecology
PROC: 0U5B8ZZ Destruction of Endometrium, Via Natural or Artificial Opening Endoscopic (ICD-10-PCS; CPT 58563; principal; 2024-12-21 09:00)
DX: N92.0 Excessive and frequent menstruation with regular cycle (principal); Z98.890 Other specified postprocedural states; Z98.51 Tubal ligation status; Z80.3 Family history of malignant neoplasm of breast; Z80.7 Family history of other malignant neoplasms of lymphoid, hematopoietic and related tissues
CPT/HCPCS: 58558; 88305; A9270; J1885; J2003; J2250; J2704; J3010; J7120